=== PATIENT | female | born 1950 | race African-American/Black ===

== ENCOUNTER 2017-04-15 09:19 | Emergency (ER) | payer SELFPAY ==
[~2017-04-15] VITALS: Ht 167.6 cm; Wt 95.2 kg
[2017-04-15 09:25] VITALS: BP 186/86
== END 2017-04-15 13:00 | disposition home or self-care (01) ==
LOC: EME 09:19
DX: M79.671 Pain in right foot (principal); M25.571 Pain in right ankle and joints of right foot; E11.9 Type 2 diabetes mellitus without complications; I10 Essential (primary) hypertension
CPT/HCPCS: 73610; 73630; 99281; 99285